=== PATIENT | male | born 1960 | race Caucasian/White ===

== ENCOUNTER 2019-05-01 19:50 | Observation (INO) | payer BC ==
[2019-05-01] MEDS ORDERED: Acetaminophen 500 MG TAB ONE (21:29)
[2019-05-01] MEDS ORDERED: rOPINIRole HCl 2 MG TAB PO SCH (21:45)
[2019-05-02 00:08] LABS: Troponin I Less than 0.010 ng/mL (< 0.028)
[2019-05-02 00:35] VITALS: BMI 37.0
--- NOTE | 2019-05-02 01:16 | PDOC.FPRHP ---
- History of Present Illness Chief Complaint: Palpitations History of Present Illness: Pt is a 58 yo male with PMH significant for PVC's, restless leg syndrome who presented to the emergency department with palpitations causing shortness of breath, mild pressure substernal. The symptoms were the worst he has felt since being diagnosed with PVC's so he decided to be seen at a hospital for the third time in three weeks. He began experiencing the palpitations at rest recently. He denies episodes of passing out, LOC. He states his symptoms have become worse over the last 3-4 weeks. He was seen in [place] twice and followed up withe cardiology group in [facility] who gave him a Holter monitor last Monday until this coming Monday. He reports his maintainer plant was considering an ablation. Pt was unsure of the full timeline, procedures. He was diagnosed with PVC's about one year ago. At this time he underwent a cardiac cath, nuclear stress which he states were normal other than R carotid stenosis. He has had 2 echocardiograms performed in the last 2 years which were normal. He had a third this year which his maintainer plant reported he had "scarring" but pt is unsure the official report. Of note he is not taking a statin but does report xanthelasma over the last 3 months. - Allergies/Adverse Reactions Allergies Allergy/AdvReac Type Severity Reaction Status Date / Time rofecoxib [From Vioxx] Allergy Verified 05/01/19 23:48 - Home Medications Medication Instructions Recorded Confirmed Type Diltiazem HCl [Diltiazem 24Hr ER] 120 mg PO DAILY 05/02/19 05/02/19 History Pantoprazole [Protonix] 40 mg PO DAILY PRN 05/02/19 05/02/19 History rOPINIRole HCl [Ropinirole HCl] 2 mg PO TID 05/02/19 05/02/19 History - History PMHx: restless leg syndrome, symptomatic PVC's, anxiety PSHx: cholecystectomy, R wrist surgery x 2, renal stent and removed for nephrolithiasis FHx: mother: [place] 1 year ago Social: denies tobacco, drugs, endorsed moderate drinking on weekends - Review of Systems General: denies: fever/chills, weight/appetite/sleep changes Eyes: denies: eye pain, vision changes ENT: denies: nasal congestion, rhinorrhea Respiratory: denies: cough, congestion, shortness of breath Cardiovascular: reports: chest pain, palpitation, orthopnea. denies: edema Gastrointestinal: denies: nausea, vomiting, diarrhea, constipation Genitourinary: denies: incontinence, dysuria, polyuria Skin: denies: rashes, lesions Neurological: denies: numbness, syncope Psychological: reports: anxiety. denies: depression - Vital signs BP: 117/68 HR: 75 RR: 22 Tmax: 98.1 Pox: 96% on 2 L Wt: 113.4 kg - Physical Exam Constitutional: awake, alert and oriented HEENT: PERRLA, EOMI Neck: FROM, no JVD Heart: RRR, normal S1/S2, no edema Lungs: CTAB, no respiratory distress, no wheezing Abdomen: soft, non-tender, bowel sounds present Musculoskeletal: normal structure, ROM grossly normal Neurological: no focal deficit Skin: no rash/lesions Psychiatric: normal mood and affect FMR H&P: Results - Labs Result Diagrams: 05/02/19 02:46 05/02/19 02:46 - Radiology Interpretation Chest x-ray Status: image reviewed by me, report reviewed by me Additional comment: No acute findings FMR H&P: A/P - Problem List (1) Palpitations Current Visit: Yes Status: Acute Code(s): R00.2 - PALPITATIONS (2) Premature ventricular contraction Current Visit: Yes Status: Acute Code(s): I49.3 - VENTRICULAR PREMATURE DEPOLARIZATION (3) Xanthelasma of eyelid Current Visit: Yes Status: Acute Code(s): H02.60 - XANTHELASMA OF UNSPECIFIED EYE, UNSPECIFIED EYELID (4) Restless leg syndrome Current Visit: Yes Status: Acute (5) Anxiety Current Visit: Yes Status: Acute Code(s): F41.9 - ANXIETY DISORDER, UNSPECIFIED - Plan Pt is a 58 yo male here for: # Hx of PVC's # Palpations EKG revealed NSR, no PVC's noted. He was asymptomatic during interview. - pending release of records - continue diltiazem daily - cardiology consult in the am - monitor on tele - trend trops # Restless leg syndrome - continue home medications # Xanthelasma - Lipid panel pending # Hx of anxiety - not currently on medications # GERD - continue home medications Fluids: none Diet: HH VTE: SCD's, Marla score 1 Code: full Dispo: < 48 hours FMR H&P: Upper Level - Plan Date/Time: 05/02/19 0108 IJodie DO, have evaluated this patient and agree with findings/plan as outlined by test engineering intern resident. Pertinent changes/additions are listed here. Pt is a 58 yo M with PMH of PVC's recently placed on holter monitor by maintainer plant, Dr. Larose, presenting via EMS tx from [facility] for chest pain described as chest tightness associated with palpitations that were more intense and longer lasting than his typical PVCs describing back to back PVC's and SOB. He reports long hx of PVC's since about 3 years ago but over the last few months has become much worse. He has had extensive workup including negative NM stress test and cardiac cath 04/2018 and recent echos done by maintainer plant. He was put on holter monitor last week and started on Diltiazem 120mg last week as well. He has not yet follow up with maintainer plant but today after increase in PVC's and 3h of chest pain, he became frustrated and preferred evaluation at different facility for a second opinion. At the time of my evaluation, he no longer has chest pain or palpitations. He received Nitro 1/2 in, 50mcg fentanyl IV, 0.4mg PO nitro SL, and 324mg ASA in [facility] before transfer. He was given 650mg Tylenol and 2mg Ropinirole in our ED. VS: 117/68, P75, R22, T98.1, O298% on RA PE: Gen: obese, NAD HEENT: Moist MM, no LAD, no JVD Heart: RRR, no murmurs or extra sounds. Distal pulses 2+ Lungs: CTAB, no wheezing. No increased work of breathing Abd: soft, nontender, BS+ Ext: no cyanosis or edema Psych: AOx3, appears anxious Pertinent Labs/Imaging: CBC- unremarkable CMP- mildly elevated AST/ALT at 40/61 Troponin: <0.010 x2 CXR: poor inspiration, no acute cardiopulmonary process seen EKG: NSR, no PVC's A/P: Atypical CP associated with PVC's: -Place in observation on telemetry. -Heart score: 1 -TSH, Mg, Phos, FLP pending -EKG with no PVCs, NSR without ST changes -continue Diltiazem 120mg -plan on cardiology consult in the AM -NPO at MT for possible procedure -requested records of previous hospital stay and from previous maintainer plant -hold off on echo and stress test for now Elevated LFT's: -mildly elevated. Screen for Hepatitis. -will need f/u outpatient. RLS: -Continue Requip DVT PPx: Lovenox GI PPx: none PCP: [facility] Code Status: Full Dispo: Stable, LOS <48h Addendum - Attending - Attending Attestation Date/Time: 05/02/19 2274 I personally evaluated the patient and discussed the management with Dr. Baca. I agree with the History, Examination, Assessment and Plan documented above with any addition or exceptions noted below. Patient still with intermittent palps, no cp/sob currently. On exam he has audible irregular rhythm. PVCs on tele, with <=7/min (majority 0 or 1/min). Discussed with cards who decline to see him. Will plan on d/c, return warnings , and completion of his current workup tomorrow when he turns his even monitor in.
[2019-05-02 02:52] LABS: #Eosinphils 0.2 thou/uL (0.0-0.7); #Lymphocytes 1.4 thou/uL (1.20-3.40); #Monocytes 0.4 thou/uL (0.11-0.59); #Neutrophils 3.3 thou/uL (1.40-6.50); %Basophils 0.4 % (0.0-1.0); %Eosinophils 2.9 % (0.0-10.0); %Lymphocytes 27.1 % (21.0-51.0); %Monocytes 7.4 % (0.0-10.0); %Neutrophils 62.3 % (42.0-75.0); Mean Corpuscular HGB CONC 31.9 g/dL (32.0-36.0); Mean Corpuscular Hemoglobin 28.8 pg (27.0-31.0); Mean Corpuscular Volume 90.3 fL (78.0-98.0); Platelet Count 191 thou/uL (130-400); RBC Distribution Width 12.6 % (11.5-14.5); Red Blood Cell (RBC) Count 4.87 mill/uL (4.70-6.10); White Blood Cell (WBC) Count 5.3 thou/uL (4.8-10.8)
[2019-05-02 03:20] LABS: Troponin I Less than 0.010 ng/mL (< 0.028)
[2019-05-02 03:21] LABS: Anion Gap 12 mmol/L (10-20); BUN (Urea Nitrogen) 18 mg/dL (8.4-25.7); Calc. Creatinine Clearance 135 mL/min (70-130); Carbon Dioxide 27 mmol/L (22-29); Cardiac Risk 4.6 (Less than 4.5); Chloride 106 mmol/L (98-107); Cholesterol 181 mg/dl (< 200 Desired); Estimated GFR-MDRD 77; Glucose 102 mg/dL (70-105); HDL Cholesterol 39 mg/dL (>60 Neg Risk); LDL Cholesterol, Calculated 106 mg/dL; Potassium 4.4 mmol/L (3.5-5.1); Sodium 141 mmol/L (136-145); Triglycerides 180 mg/dL (Less than 150)
[2019-05-02 03:49] LABS: Phosphorus 4.6 mg/dL (2.3-4.7)
--- NOTE | 2019-05-02 06:29 | PDOC.FM ---
- Subjective Subjective: Patient was sleeping comfortably in his hospital bed at the time of evaluation but was easily arousable. He denied any acute overnight events, specifically with regard to additional episodes of sustained palpitations, SOB or N/V. He states that he has been comfortable since admission. - Objective Vital Signs & Weight: Vital Signs (12 hours) Temp Pulse Resp BP BP Pulse Ox 05/02/19 03:35 68 18 99/58 L 95 05/02/19 00:00 97.9 F 73 18 104/64 95 Weight Weight 117.027 kg Result Diagrams: 05/02/19 02:46 05/02/19 02:46 Phys Exam - Physical Examination Constitutional: NAD HEENT: PERRLA, moist MMs, sclera anicteric, oral pharynx no lesions Neck: no JVD, supple, full ROM No bruits notes Respiratory: no wheezing, no rales, no rhonchi, clear to auscultation bilateral Cardiovascular: no significant murmur, no rub Occasional irregular beats Gastrointestinal: soft, non-tender, no distention, positive bowel sounds Musculoskeletal: no edema, pulses present Neurological: non-focal, moves all 4 limbs Psychiatric: normal affect, A&O x 3 Skin: no rash Dx/Plan (1) Anxiety Code(s): F41.9 - ANXIETY DISORDER, UNSPECIFIED Status: Acute (2) Palpitations Code(s): R00.2 - PALPITATIONS Status: Acute (3) Premature ventricular contraction Code(s): I49.3 - VENTRICULAR PREMATURE DEPOLARIZATION Status: Acute (4) Restless leg syndrome Status: Acute (5) Xanthelasma of eyelid Code(s): H02.60 - XANTHELASMA OF UNSPECIFIED EYE, UNSPECIFIED EYELID Status: Acute - Plan Plan: Patient is a 58 y/o male with a PMH significant for PVCs, Anxiety and RLS who presents for evaluation of recurrent palpitations. # Acute Hypoxic Respiratory Distress, 2/2 Recurrent PVC's -Patient has a known history of PVCs, currently being evaluated by Polishing Machine Operator in [place], [place] -Patient wears a Holter Monitor - planned interrogation on 05/03 -Trops: Neg x3 -BNP: Pending -EKG: NSR w/o PVC's noted - asymptomatic during interview per Resident Night Team -GANESH Pending -Will continue Diltiazem, ASA -Will call Cardiology this morning to assess need for formal consult # Restless Leg Syndrome -Continue home medication regimen # Xanthelasma -Fasting Lipid Panel: Tri(180) / Chol(181) / LDL(106) / HDL(39) -ASCVD: 4.7 - no statin indicated # Hx of Anxiety -Not currently on medications # GERD -Continue home Protonix regimen PCP: [facility] Code: Full Diet: HH w/ Low Sodium VTE PPx: SCDs - SANJUANITA Score: 1 Activity: Ad carol Dispo: Patient is currently admitted to the Telemetry Floor for observation of recurrent PVCs. Will consider Cardiology consult and assess ability to interrogate Holter Monitor. Continue to manage chronic medical conditions. Expected LOS < 48H. Addendum - Attending - Attending Attestation Date/Time: 05/02/19 4343 I personally evaluated the patient and discussed the management with the team. I agree with the History, Examination, Assessment and Plan documented above with any addition or exceptions noted below.
[2019-05-02] MEDS ORDERED: FLU VACC QS2019-20(6MOS UP)/PF 60 MCG/0.5 ML SYRINGE IM ONE (09:00)
[2019-05-02] MEDS ORDERED: rOPINIRole HCl 2 MG TAB PO SCH (09:00)
[2019-05-02 12:09] VITALS: BP 129/76; TEMP 98.6
--- NOTE | 2019-05-03 15:34 | DIS ---
DATE OF ADMISSION: 05/01/2019 DATE OF DISCHARGE: 05/02/2019 RESIDENT: Mendel Ivy MD ADMITTING ATTENDING: Mikal De La Garza MD DISCHARGE ATTENDING: Mikal De La Garza MD CONSULTATIONS: None. PROCEDURES: None. PRIMARY DIAGNOSIS: Premature ventricular contractions. SECONDARY DIAGNOSES: 1. Restless legs syndrome. 2. Xanthelasma. 3. History of anxiety. 4. Gastroesophageal reflux disease. DISCHARGE MEDICATIONS: None. DISCONTINUED MEDICATIONS: 1. Acetaminophen 500 mg. 2. Ropinirole 2 mg. 3. Pantoprazole 40 mg. 4. Diltiazem 120 mg. HISTORY OF PRESENT ILLNESS/HOSPITAL COURSE: The patient is a 58-year-old male with past medical history significant for multiple episodes of premature ventricular contractions and restless legs syndrome who presents to the emergency department with palpitations causing shortness of breath, mild pressure substernal. His symptoms were the worst when he felt since he has been diagnosed with premature ventricular contractions, so he decided to see a hospital for the 3rd time in three weeks. He began experiencing palpitations at rest. He denied episodes of syncope, loss of consciousness, and states the symptoms became worse over the past 3 weeks. He was seen in [place] twice and followed up with Cardiology [facility] in [facility] who gave him a Holter monitor. The Monday before presentation, he reports that his Rocket Engine Tester is considering an ablation. The patient was unsure of a full timeline of procedures. However, he was diagnosed with premature ventricular contractions about 1 year ago. At that time, he underwent a cardiac catheterization, nuclear stress test, both of which were normal other than right carotid stenosis. He had had 2 echocardiograms performed in the year prior to presentation, both of which were normal and he had a 3rd earlier this year, which his senior credit analyst reported only minimal "scarring" but the patient was unsure of the official report. The patient noted that he does not take a statin, but does report xanthelasma over the past 3 months. He was subsequently admitted to the hospital and transferred to telemetry floor for observation. He had minimal episodes of premature ventricular contractions and did not have any additional episodes of chest pain or shortness of breath. Since he was following up with his senior credit analyst the day after he presented, he was subsequently prepped for discharge to interrogate his Holter monitor and begin planning for the ablation that the patient had mentioned earlier in his workup prior to discharge. The patient's vital signs were reported as temperature 98.6, pulse 76, blood pressure 129/76, respirations 18 per minute, O2 oxygen saturation 96% on room air. LABORATORY ANALYSIS: Revealed a white blood cell count of 5.3, hemoglobin 14, hematocrit 44, platelet count 191. Chem panel revealed a sodium of 141, potassium 4.4, chloride 106, carbon dioxide 27, BUN 18, creatinine 1, glucose 102, calcium 9, phosphorus 4.6, magnesium 2.0. Troponins were less than x3. BNP was 22. Triglycerides 180, cholesterol 181, LDL cholesterol 106, HDL cholesterol 39. TSH was 1.5570. DISPOSITION: Stable. DISCHARGE INSTRUCTIONS: Location: Home. Diet: Heart healthy. Activity: No restrictions. Followup: The patient was encouraged to follow up with his primary care provider, who was his senior credit analyst in [place], [place] the day after discharge due to his previously established appointment. Additionally, the patient was encouraged to discuss the results of his Holter monitor during the week leading up to his hospitalization and during his hospitalization. Job ID: [id number]
== END 2019-05-02 15:27 | disposition home or self-care (01) ==
LOC: ERS 19:50 → 2SW 22:45
PROVIDERS: ADMIT Family Medicine; ATTEND Family Medicine
DX: I49.3 Ventricular premature depolarization (principal); R06.03 Acute respiratory distress; G25.81 Restless legs syndrome; H02.60 Xanthelasma of unspecified eye, unspecified eyelid; F41.9 Anxiety disorder, unspecified; K21.9 Gastro-esophageal reflux disease without esophagitis; I65.21 Occlusion and stenosis of right carotid artery; R79.89 Other specified abnormal findings of blood chemistry; F17.220 Nicotine dependence, chewing tobacco, uncomplicated; E66.9 Obesity, unspecified; Z68.37 Body mass index [BMI] 37.0-37.9, adult; Z79.899 Other long term (current) drug therapy; Z88.8 Allergy status to other drugs, medicaments and biological substances
CPT/HCPCS: 36415; 80048; 80061; 83735; 83880; 84100; 84443; 84484; 85025; 90471; 90686; 93005; G0008; G0378